=== PATIENT | male | born 1995 | race Caucasian/White ===

== ENCOUNTER 2021-11-13 21:11 | Emergency (ER) | payer MEDICAID ==
[~2021-11-13] VITALS: Ht 170.2 cm; Wt 73.0 kg
[2021-11-13] MEDS ORDERED: CEPHALEXIN 250MG CAPSULE PO ONE (22:30)
[2021-11-13] MEDS ORDERED: LIDOCAINE HCL/PF 1% 10 MG/ML 5ML VIAL INFIL ONE (22:30)
[2021-11-13] MEDS ORDERED: HYDROCODONE/ACETAMINOPHEN 5/325MG TABLET PO ONE (22:30)
[2021-11-13] MEDS ORDERED: TETANUS, DIPHTHERIA, PERTUSSIS VAC/PF 0.5ML (>10YR OLD) IM ONE (22:30)
[2021-11-13] MEDS ORDERED: BACITRACIN ZINC OINT UDPKT TOP ONE (22:30)
[2021-11-13] MEDS ORDERED: LIDOCAINE HCL 1% 20ML VIAL (Pyxis) INJ INFIL ONE (23:00)
[2021-11-14 00:29] VITALS: BP 114/45
[2021-11-14] MEDS ORDERED: IBUP-2029 MT (00:53)
[2021-11-14] MEDS ORDERED: CEPH500C2 MT (00:53)
[2021-11-14] MEDS ORDERED: HYDR-4001 MT (00:53)
== END 2021-11-14 01:12 | disposition left against medical advice (07) ==
LOC: ER 21:11
DX: S61.32 Laceration with foreign body of finger with damage to nail (principal); W26.0XXA Contact with knife, initial encounter; Y93.89 Activity, other specified; Y92.9 Unspecified place or not applicable
CPT/HCPCS: 12002; 73140; 90715; 99283; J3490; Z7610